=== PATIENT | female | born 1935 | race African-American/Black ===

== ENCOUNTER → 2017-05-19 | Outpatient (CLI) | payer OTHER, MEDICAID ==
[~2017-05-19] VITALS: Ht 172.7 cm; Wt 54.0 kg
[~2017-05-19] MED LIST: ALTACE10 MG PO; ASPIR 8181 MG PO; BUDESONIDE EC3 MG PO; COREG25 MG PO; FLOMAX0.4 MG PO; HYDROCHLOROTH12.5 M1 PO; SUPER B COMPLE1 EAC2 PO
[2017-05-19 09:02] VITALS: BP 145/74
[2017-05-19 09:15] LABS: HEMATOCRIT 39.4 % (37.0-47.0); HEMOGLOBIN 12.5 gm/dL (12.0-15.0); MCH 31.2 pg (26.0-34.0); MCHC 31.7 g/dL (28.0-37.0); MCV 98.4 fL (80.0-100.0); MPV 10.1 fl. (7.2-11.1); RDW-CV 14.4 % (10.5-14.5); WBC 4.3 thou/uL (4.0-11.0)
[2017-05-19 09:30] LABS: APTT 26.4 Seconds (25.0-31.3); INR 1.1; PROTIME 10.4 Seconds (9.20-11.50)
[2017-05-19 09:35] LABS: ALBUMIN 3.8 g/dL (3.4-5.0); CALCIUM 9.3 mg/dL (8.5-10.1); CREATININE 1.5 mg/dL (0.6-1.3); POTASSIUM 4.7 mmol/L (3.5-5.1); TOTAL BILIRUBIN 0.4 mg/dL (<0.1-1.0); TOTAL PROTEIN 7.7 g/dL (6.4-8.2)
[2017-05-19 11:59] VITALS: BP 111/59
[2017-05-19 12:32] VITALS: BP 137/62
--- NOTE | 2017-05-19 13:53 | EKG ---
[place] [address] ELECTROCARDIOGRAM REPORT Name: YEN BEAL Room: [facility]#: [id number] Admission: 05/19/17 Attend Phys: Carlos Manuel Bell MD Discharge: Date of : 33 Report #: [id number] THIS REPORT FOR: //name// [facility] Test Date: 2017-05-19 Test Time: 09:10:40 Pat Name: YEN BEAL Department: Room: Gender: F Service Person: : 1935 Requested By: Carlos Manuel Bell Order Number: [id number] Reading MD: Carlos Manuel Bell Measurements Intervals [place] Rate: 62 P: 77 MA: 102 QRS: -90 QRSD: 135 T: 34 QT: 452 QTc: 459 Interpretive Statements Ventricular-paced rhythm No further analysis attempted due to paced rhythm No previous ECG available for comparison Electronically Signed On 05-19-2017 13:52:54 EMPLOYMENT COUNSELOR by Carlos Manuel Bell [email or web address] <ELECTRONICALLY SIGNED> By: Carlos Manuel Bell MD, [facility] 05/19/17 1352 0910 09 Carlos Manuel Bell MD, FACC /EPI
[2017-05-19 14:17] VITALS: BP 119/49
--- NOTE | 2017-06-08 07:01 | CARD ---
[address] [address] CARDIAC CATH REPORT Name: YEN BEAL Room: [facility] [place]#: [id number] Admission: 05/19/17 Attend Phys: Carlos Manuel Bell MD Discharge: Date of : 33 Report #: [id number] THIS REPORT FOR: //name// APPROVED REPORT Patient Status: Out-Patient Room #: Event Personnel: Carlos Manuel Bell Public Policy Mediator, Meredith Burgos RN Rv Servicer, Cain Hanson (R) Monitor, Renae Garza RTR Scrub Exam: Generator Change for a Bi-Ventricular pacing defibrillator Indications: biventricular pacing defibrillator generator at elective replacement The patient is a 82 year-old female with a history of . Intraoperative Conscious Sedation Sedation start time: 11:03 Case end Time: 11:21 Fentanyl 25 mcg Versed 1 mg Implanted Devices: Biotronik Itrevia 7 HFT DF1, model #842173, serial number [id number] Explanted Devices: [employer]tronic Protecta EMERGENCY SERVICES DISPATCHER-D model number D334 DRG, serial number [id number] Procedure After informed consent was obtained the patient was brought to the interventional radiology lab. Local anesthesia was achieved with 1% lidocaine. The area of the left chest was prepped and draped in sterile fashion. After an initial incision was made over the existing pulse generator the generator was explanted using electrocautery and blunt dissection. The pocket was flushed with antibiotic solution. All thresholds sensing and pacing impedances were checked and deemed to be satisfactory. Next after the leads were attached to a new generator the pulse generator and redundant leads were replaced within the device pocket. The deep tissues were closed using interrupted stitches of 2-0 Vicryl suture. The skin incision was then closed with a single subcuticular stitch of 4-0 Vicryl area several Steri-Strips were placed across the incision. A sterile Telfa dressing was then covered with [place] [address] CARDIAC CATH REPORT Name: YEN BEAL Room: [facility]#: [id number] Admission: 05/19/17 Attend Phys: Carlos Manuel Bell MD Discharge: Date of : 33 Report #: [id number] The patient tolerated the procedure well and there were no complications associated with the procedure. Findings The sensed R-wave was 24.2 mV. RV lead pacing impedance was 535 ohms. RV lead pacing threshold was 0.7 V at 0.40 ms. The sensed P wave was 3.5 mV. The right atrial pacing impedance was 420 ohms. The right atrial pacing threshold was 0.6 V at 0.40 ms. The sensed LV wave was 15.1 mV. The pacing impedance was 217 ohms. The LV lead threshold was 0.75 V at 2.40 V. VF detection rate was set at 222 bpm. VT detection rate was 154 bpm in the slow VT zone and 176 bpm the fast VT zone. VF therapies were anti-tach pacing times one followed by 40 J shock times a day. VT 1 therapies were monitor only. VT 2 therapies were burst pacing 6 followed by rapid pacing 6 followed by 40 J shock times a day. Pacing mode DDD/CLS. Lower rate 60 bpm. Upper rate 120 bpm. Conclusion 1. Biventricular ICD pacing generator at elective replacement. 2. Successful biventricular ICD pacing generator replacement. 3. Atrial, RV and LV lead thresholds, sensing and impedances were satisfactory. Recommendations 1. Follow-up site check in one week. 2. Follow-up with device check for routine. <ELECTRONICALLY SIGNED> By: Carlos Manuel Bell MD, FACC 06/08/17699 9 9Micjesi Bell MD, FACC /INF
== END | disposition home or self-care (01) ==
LOC: M.CL 08:29
PROVIDERS: Internal Medicine Cardiovascular Disease
DX: Z45.02 Encounter for adjustment and management of automatic implantable cardiac defibrillator (principal); E78.5 Hyperlipidemia, unspecified; I65.29 Occlusion and stenosis of unspecified carotid artery; I42.9 Cardiomyopathy, unspecified; F17.210 Nicotine dependence, cigarettes, uncomplicated; Z90.710 Acquired absence of both cervix and uterus; Z98.890 Other specified postprocedural states; Z79.82 Long term (current) use of aspirin; Z79.899 Other long term (current) drug therapy